=== PATIENT | female | born 1985 | race African-American/Black ===

== ENCOUNTER 2016-04-08 22:59 | Emergency (ER) | payer SELFPAY ==
[2016-04-08 22:59] VITALS: BMI 36.5
[2016-04-08 23:17] VITALS: BP 133/68; PULSE 76; TEMP 98.6
--- NOTE | 2016-04-09 00:22 | EDPRACDOC ---
- General Information Chief Complaint: Toothache Stated Complaint: TOOTH ACHE Time Seen by Provider: 04/09/16 00:04 Information Source: Patient Mode Of Arrival: Car Home Medications: Home Medications Hydrocodone Bit/Acetaminophen [Hydrocodon-Acetaminophen 5-325] 1 tab PO Q6H PRN #7 tab 12/29/15 Amoxicillin Trihydrate [Amoxicillin] 500 mg PO TID #30 tab 04/09/16 Meloxicam [Mobic] 7.5 mg PO BID #20 tab 04/09/16 Allergies/Adverse Reactions: Allergies Allergy/AdvReac Type Severity Reaction Status Date / Time nitrofurantoin Allergy Mild Hives* Verified 12/29/15 21:04 [From Macrobid] nitrofurantoin Allergy Mild Hives* Verified 12/29/15 21:04 macrocrystalline [From Macrobid] tramadol Allergy Hives* Verified 12/29/15 21:04 latex AdvReac Mild Itching Verified 12/29/15 21:04 - History of Present Illness Onset: 5 days HPI: PT PRESENTS TODAY WITH RIGHT LOWER TOOTH PAIN X MONTHS. STATES MISSED WORK TODAY. STATES GETTING INSURANCE SOON FOR DENTAL. NO FEVER. NO DISTRESS. Reported Tooth Problem: 20 Pain Severity: Reports: Mild Relevant History of: Reports: None Modifying Factors: improves with: Cold, Chewing Associated Signs and Symptoms: Reports: None ED Past Medical History - History Reviewed Yes Nurses notes reviewed and agree except as marked - Patient Medical History Cardiac History: Reports: Hypertension Respiratory History: Reports: Asthma Psychological History: Reports: Anxiety, Bipolar Disorder (No treatment). Denies: Depression Systemic History: Denies: Cancer Surgical History: Denies: Hysterectomy - Family Medical History Reports: Hypertension (mother, father, mgf), Diabetes (mother), Cancer (mgm- breast cancer, pgm- lung cancer), Stroke (mgm). Denies: Cardiac Disorders - Social Medical History Smoking Status: Heavy tobacco smoker (5 or more cigarettes/day or daily pipe/ cigar) EDM Review of Systems - Review of Systems ROS Negative Except as Marked: Yes All systems reviewed and were negative except as marked Constitutional: No Symptoms Reported Eyes: No Symptoms Reported Ears: No Symptoms Reported Throat: No Symptoms Reported Nose: No Symptoms Reported Mouth: Tooth Pain Respiratory: No Symptoms Reported Cardiovascular: No Symptoms Reported Gastrointestinal: No Symptoms Reported Neurological: No Symptoms Reported Musculoskeletal: No Symptoms Reported Integumentary: No Symptoms Reported - Physical Exam Constitutional: Alert (Awake), No apparent distress Oriented to: Time, Person, Place Last recorded Vital Signs: Last Vital Signs Temp 98.6 F 04/08/16 23:14 Pulse 76 04/08/16 23:14 Resp 20 04/08/16 23:14 BP 133/68 04/08/16 23:14 Pulse Ox 98 04/08/16 23:14 Oxygen Pulse Oxygen Saturation 98 O2 Device Room Air Oxygen Flow Rate Fraction of Inspired Oxygen ( FIO2) - HEENT Head: Normal Eye Exam: Normal Oropharynx: Other (NOTED CHIPPED TOOTH AT TOOTH #20 THAT PT HAS APPLIED OTC TEMPORARY CEMENT; NO OTHER FINDINGS) Tympanic Membrane: Normal ENT EAC: Normal Nose: No Symptoms Reported Neck: Normal, Denies Pain, Midline - Respiratory/Cardiovascular Respiratory: Normal - CTA Cardiovascular: Normal - GI Palpation: Normal Tenderness: Non tender - Musculoskeletal Back: Normal Extremities: Normal - Integumentary Skin: Normal Lymphatics: Normal - Neurologic Cerebellar: Normal Mood Description: Normal Thought: Coherent Perception: Normal ED Tooth Problem Exam - HEENT Face: Normal Teeth: Right: Molar-2 Lower (CEMENT) Gingiva: Normal Palate: Normal Mouth Range of Motion: Normal Sinuses: Normal Oropharynx: Normal Neck: Normal, Denies Pain, Midline Decision Time to Discharge: 00:22 - Departure Disposition: Home Condition: Good Final Diagnosis: Toothache Instructions: [facility] (ED) Education/Counseling Given To: Patient Education/Counseling Given Regarding: Diagnosis, Treatment, Follow Up Referrals: [facility] [NonStaff] - One Week None,No Provider [Primary Care Provider] - One Week Prescriptions: New Amoxicillin Trihydrate [Amoxicillin] 500 mg PO TID #30 tab Meloxicam [Mobic] 7.5 mg PO BID #20 tab No Action Hydrocodone Bit/Acetaminophen [Hydrocodon-Acetaminophen 5-325] 1 tab PO Q6H PRN #7 tab PRN Reason: Pain Forms: Excuse Note Additional Instructions: [facility] [phone]
== END 2016-04-09 00:47 | disposition home or self-care (01) ==
LOC: ED 22:59
DX: K08.89 Other specified disorders of teeth and supporting structures (principal)
CPT/HCPCS: 99282